=== PATIENT | female | born 1960 | race Caucasian/White ===

== ENCOUNTER 2019-08-06 14:27 | Emergency (ER) | payer OTHER ==
[~2019-08-06] VITALS: Ht 157.5 cm; Wt 66.7 kg
--- NOTE | 2019-08-06 14:35 | NUR ---
Dr. Baker at the bedside for MSE.
[2019-08-06] MEDS ORDERED: IV NORMAL SALINE 1000 ML BAG IV ONE (14:45)
[2019-08-06 14:57] LABS: BASOPHILS % (AUTO) 0.4 % (0.0-2.0); EOSINOPHILS % (AUTO) 0.2 % (0.0-7.0); HEMATOCRIT 45.1 % (31.2-41.9); HEMOGLOBIN 15.6 g/dL (10.9-14.3); LYMPHOCYTES # (AUTO) 1.9 K/uL (20.0-40.0); LYMPHOCYTES % (AUTO) 22.7 % (20.5-51.5); MEAN CORPUSCULAR HEMOGLOBIN 30.2 uug (24.7-32.8); MEAN CORPUSCULAR HGB CONC 35 g/dL (32.3-35.6); MEAN CORPUSCULAR VOLUME 87.5 fL (75.5-95.3); MONOCYTES # (AUTO) 0.6 K/uL (2.0-10.0); MONOCYTES % (AUTO) 7.2 % (0.0-11.0); NEUTROPHILS # (AUTO) 5.8 K/uL (1.8-8.9); NEUTROPHILS % (AUTO) 69.5 % (38.5-71.5); PLATELET COUNT (AUTO) 224 K/uL (179-408); RED BLOOD CELL COUNT(AUTO) 5.15 MIL/uL (3.63-4.92); WHITE BLOOD COUNT (AUTO) 8.3 K/uL (3.8-11.8)
[2019-08-06 15:11] LABS: CREATININE 0.8 mg/dL (0.6-1.3); POTASSIUM 3.8 mmol/L (3.5-5.1)
[2019-08-06 15:15] LABS: BILIRUBIN,DIRECT 0.2 mg/dL (0.0-0.2); BILIRUBIN,TOTAL 0.6 mg/dL (0.2-1.0); TOTAL PROTEIN, SERUM 8.3 g/dL (6.4-8.2)
--- NOTE | 2019-08-06 15:40 | NUR ---
Pt stable throughout visit. Patient discharged to home in stable conditon. Written and verbal after care instructions given to daughter. who verbalizes understanding of instructions. Patient provided reassurance and redirection of anxiety. ID band and IV saline lock on L AC 20 G removed, no signs of acute bleeding noted. Pt ambulated out of ER with steady gait.
[2019-08-06 15:45] VITALS: BP 124/66
== END 2019-08-06 15:50 | disposition home or self-care (01) ==
LOC: ER 14:27
DX: F41.9 Anxiety disorder, unspecified (principal); R06.00 Dyspnea, unspecified; E03.9 Hypothyroidism, unspecified; Z79.890 Hormone replacement therapy
CPT/HCPCS: 36415; 70030-TC; 71045; 85025; 93005; A4663; J7030